=== PATIENT | female | born 1985 | race Caucasian/White ===

== ENCOUNTER 2016-05-30 18:51 | Emergency (ER) | payer MEDICAID ==
[~2016-05-30] VITALS: Ht 165.1 cm; Wt 104.3 kg
[~2016-05-30 18:51] MED LIST: ALPR1TAB2 PO
[2016-05-30 18:57] VITALS: BP 126/79
[2016-05-30] MEDS ORDERED: cefTRIAXone SOD 1,000 MG VL IM ONE (22:00)
[2016-05-30] MEDS ORDERED: ACETAMINOPHEN 500 MG TAB PO ONE ×2 (22:27→22:30)
== END 2016-05-30 22:41 | disposition home or self-care (01) ==
LOC: ER 18:53
DX: J03.90 Acute tonsillitis, unspecified (principal); M10.9 Gout, unspecified; E78.5 Hyperlipidemia, unspecified; I10 Essential (primary) hypertension
CPT/HCPCS: 71020; 96372; 99284; J0696

== ENCOUNTER 2017-01-23 16:05 | Emergency (ER) | payer MEDICAID ==
[~2017-01-23] VITALS: Ht 165.1 cm; Wt 73.9 kg
[2017-01-23 21:05] VITALS: BP 142/92
== END 2017-01-23 21:23 | disposition home or self-care (01) ==
LOC: ER 16:10
DX: O20.0 Threatened abortion (principal); Z3A.01 Less than 8 weeks gestation of pregnancy; O16.1 Unspecified maternal hypertension, first trimester; M10.9 Gout, unspecified; E78.5 Hyperlipidemia, unspecified; Z88.6 Allergy status to analgesic agent; Z88.8 Allergy status to other drugs, medicaments and biological substances; Z91.013 Allergy to seafood
CPT/HCPCS: 36415; 84702

== ENCOUNTER 2017-01-25 15:18 | Emergency (ER) | payer MEDICAID ==
[~2017-01-25] VITALS: Ht 165.1 cm; Wt 73.0 kg
[2017-01-25 17:19] VITALS: BP 121/76
== END 2017-01-25 18:06 | disposition home or self-care (01) ==
LOC: ER 15:19
DX: O20.0 Threatened abortion (principal); I10 Essential (primary) hypertension; E78.5 Hyperlipidemia, unspecified; Z88.8 Allergy status to other drugs, medicaments and biological substances; Z3A.00 Weeks of gestation of pregnancy not specified
CPT/HCPCS: 36415; 84702